=== PATIENT | female | born 1995 | race Caucasian/White ===

== ENCOUNTER 2021-05-13 02:04 | Emergency (ER) | payer SELFPAY ==
[~2021-05-13] VITALS: Ht 162.6 cm; Wt 63.5 kg
[2021-05-13 02:21] VITALS: BP 129/70
[2021-05-13] MEDS ORDERED: DEXAMETHASONE 4 MG TABLET ONE (02:47)
[2021-05-13] MEDS ORDERED: CLOT15CR5 TP (02:48)
[2021-05-13] MEDS ORDERED: DEXAMETHASONE 1 MG TABLET PO ONE (03:00)
== END 2021-05-13 03:08 | disposition home or self-care (01) ==
LOC: ER 02:44
DX: B35.4 Tinea corporis (principal)
CPT/HCPCS: 99283; J8540

== ENCOUNTER 2021-05-23 03:45 | Emergency (ER) | payer BC ==
[~2021-05-23] VITALS: Ht 162.6 cm; Wt 63.5 kg
[~2021-05-23 03:45] MED LIST: CLOT15CR5 TP
[2021-05-23 04:10] VITALS: BP 134/73
--- NOTE | 2021-05-23 04:15 | NUR ---
PT BIBSELF C/O WHITE VAGINAL DISCHARGE. PT AAOX4 BREATHING EVENLY AND UNLABORED. PER PT, SHE HAS HAD A "YEAST INFECTION FOR 3 DAYS AND IS USING MONOSTAT." PT ATTACHED TO MONITOR AND POX. PT GIVEN BLANKET, CHANGED INTO GOWN, AND CALL LIGHT WITHIN REACH.
--- NOTE | 2021-05-23 04:38 | NUR ---
urine and vaginal swabs sent to lab
[2021-05-23 04:47] LABS: BILIRUBIN,URINE NEGATIVE (NEGATIVE); COLOR,URINE YELLOW (YELLOW); LEUKOCYTE ESTERASE ,URINE NEGATIVE (NEGATIVE); NITRITE, URINE NEGATIVE (NEGATIVE); PROTEIN,URINE NEGATIVE (NEGATIVE); UGLUCOSE NEGATIVE (NEGATIVE); UROBILINOGEN,URINE 0.2 EU/dL (0.2)
--- NOTE | 2021-05-23 06:55 | NUR ---
f/u on vaginal wet mount swab, per lab another 15min
[2021-05-23] MEDS ORDERED: FLUC150T PO (07:16)
[2021-05-23] MEDS ORDERED: FLUCONAZOLE (100 MG) 100 MG TABLET PO ONE (07:30)
[2021-05-23] MEDS ORDERED: FLUCONAZOLE (100 MG) 100 MG TABLET ONE (07:37)
== END 2021-05-23 08:15 | disposition home or self-care (01) ==
LOC: ER 03:50
DX: N89.8 Other specified noninflammatory disorders of vagina (principal)
CPT/HCPCS: 84703-TC; 87070-TC; 87081-TC; 87110-TC; 87210-TC